=== PATIENT | male | born 1955 | race Caucasian/White ===

== ENCOUNTER 2018-02-20 23:58 | Inpatient (IN) | payer OTHER, MEDICARE ==
[~2018-02-20] VITALS: Ht 177.8 cm; Wt 78.3 kg
[~2018-02-20 23:58] MED LIST: [UNRECOGNIZED DRUG - CODE] PO
[2018-02-21] MEDS ORDERED: SODIUM CHLORIDE 0.9% 1,000ML IVBOLUS ONE (00:30)
[2018-02-21 00:31] LABS: MEAN CORPUSCULAR HEMOGLOBIN 31.3 pg (27.5-34.5); MEAN CORPUSCULAR HGB CONC 33.4 g/dL (33.2-36.2); MEAN CORPUSCULAR VOLUME 93.7 fL (81-97); MEAN PLATELET VOLUME 8.1 fL (7.4-10.4); PLATELET COUNT 249 x10^3/uL (130-400); RED BLOOD COUNT 4.85 x10^6/uL (4.38-5.82); RED CELL DISTRIBUTION WIDTH 14.3 % (9.4-14.8)
[2018-02-21 00:42] LABS: ALBUMIN 3.7 g/dL (3.4-5.0); ANION GAP 17 mmol/L (5-15); CALCIUM 8.4 mg/dL (8.5-10.1); CHLORIDE 111 mmol/L (98-107); CREATININE 1.39 mg/dL (0.7-1.3)
[2018-02-21 00:46] LABS: TROPONIN I < 0.015 ng/mL (0.000-0.045)
[2018-02-21 00:53] LABS: BASOPHILS % (AUTO) 0 % (0-1); EOSINOPHILS # (AUTO) 0.01 x10^3/uL (0-0.4); EOSINOPHILS % (AUTO) 0 % (1-7); LYMPHOCYTES # (AUTO) 0.39 x10^3/uL (1-3.4); LYMPHOCYTES % (AUTO) 3 % (22-44); MD SCAN; MONOCYTES # (AUTO) 0.05 x10^3/uL (0.2-0.8); MONOCYTES % (AUTO) 0 % (2-9); NEUTROPHILS # (AUTO) 14.24 x10^3/uL (1.8-6.8); NEUTROPHILS % (AUTO) 97 % (42-75)
[2018-02-21] MEDS ORDERED: CITA20TA9 PO (01:24)
[2018-02-21] MEDS ORDERED: CLON0.5T PO (01:25)
[2018-02-21] MEDS ORDERED: ATOR40TA78 PO (01:25)
[2018-02-21] MEDS ORDERED: ALBU5SOL6 HHN (01:29)
[2018-02-21] MEDS ORDERED: ONDANSETRON 2MG/ML, 2ML IVPush PRN ×2 (02:00→03:00)
[2018-02-21] MEDS ORDERED: ALBUTEROL SULFATE 2.5 MG/3 ML NPPB ONE (02:00)
[2018-02-21 02:30] VITALS: BP 122/63
[2018-02-21] MEDS ORDERED: SODIUM CHLORIDE 0.9% 1,000 ML IV SCH (02:35)
[2018-02-21] MEDS ORDERED: morphine SULFATE 10 MG/ML, 1ML IVPush PRN (03:00)
[2018-02-21] MEDS ORDERED: POLYETHYLENE GLYCOL 17 GM PACKET PO PRN (03:00)
[2018-02-21] MEDS ORDERED: ONDANSETRON ODT 4 MG PO PRN (03:00)
[2018-02-21] MEDS ORDERED: PROMETHAZINE 25 MG/ML, 1ML IM PRN (03:00)
[2018-02-21] MEDS ORDERED: AZITHROMYCIN 500 MG in SODIUM CHLORIDE 0.9% 250 ML IV SCH (03:00)
[2018-02-21] MEDS ORDERED: hydrALAzine 20 MG/ML, 1ML IVPush PRN (03:00)
[2018-02-21] MEDS ORDERED: LABETALOL 5MG/ML, 20ML IVPush PRN (03:00)
[2018-02-21] MEDS ORDERED: BISACODYL 10 MG SUPP PR PRN (03:00)
[2018-02-21] MEDS ORDERED: DOCUSATE 100 MG CAPSULE PO PRN (03:00)
[2018-02-21] MEDS ORDERED: OMNIPAQUE 350 MG/ML, 100ML BOTTLE ONE (03:30)
[2018-02-21 04:43] LABS: HEMOGLOBIN A1C 5.5 % (4.2-6.3)
[2018-02-21 04:46] LABS: FREE T4 (FREE THYROXINE) 0.77 ng/dL (0.76-1.46); THYROID STIMULATING HORMONE 1.29 mIU/L (0.358-3.740)
[2018-02-21] MEDS: ENOXAPARIN 40 MG/0.4 ML SQ SCH (05:13)
[2018-02-21] MEDS: methylPREDNISolone SOD SUCC 125 MG/2 ML IVPush SCH ×4 (05:13→23:28)
[2018-02-21 05:41] LABS: MICROSCOPIC NOT IND
[2018-02-21 05:48] LABS: CULTURE INDICATED? NO
[2018-02-21] MEDS: FLUTICASONE/VILANTEROL 200-25MCG/INH INH SCH (05:58)
[2018-02-21] MEDS ORDERED: CEFTRIAXONE PMX 2GM/50ML 50 ML IVPB SCH (06:00)
[2018-02-21 06:55] VITALS: BP 124/73
[2018-02-21] MEDS: ALBUTEROL/IPRATROPIUM 2.5MG/0.5MG, 3 ML NPPB SCH ×5 (07:50→22:57)
[2018-02-21] MEDS: CITALOPRAM 20 MG TABLET PO SCH (08:34)
[2018-02-21] MEDS: DOXYCYCLINE 100MG TABLET PO SCH ×2 (08:34→20:53)
[2018-02-21] MEDS: ACETAMINOPHEN 325 MG TABLET PO PRN ×2 (08:39→19:21)
[2018-02-21] MEDS ORDERED: CLONAZEPAM 0.5 MG PO SCH (09:00)
[2018-02-21] MEDS ORDERED: methylPREDNISolone SOD SUCC 125 MG/2 ML IVPush ONE (10:30)
[2018-02-21] MEDS ORDERED: DOXYCYCLINE 100MG TABLET PO SCH (11:00)
[2018-02-21] MEDS ORDERED: FLUTICASONE/VILANTEROL 100-25MCG/INH INH SCH (12:30)
[2018-02-21] MEDS: GUAIFENESIN ER 600 MG TABLET PO SCH ×2 (12:59→23:28)
[2018-02-21 13:17] VITALS: BP 92/45
[2018-02-21 17:07] VITALS: BP 112/52
[2018-02-21 19:39] VITALS: BP 115/67
[2018-02-21] MEDS: MONTELUKAST 10 MG TABLET PO SCH (20:52)
[2018-02-21] MEDS: ATORVASTATIN 40 MG TABLET PO SCH (20:52)
[2018-02-21] MEDS: OXYcodone IR 5MG TABLET PO PRN (21:00)
[2018-02-22 02:30] VITALS: BP 124/52
[2018-02-22] MEDS: SODIUM CHLORIDE 0.9% 1,000 ML IV SCH ×2 (03:12→21:41)
[2018-02-22] MEDS: ENOXAPARIN 40 MG/0.4 ML SQ SCH (05:15)
[2018-02-22] MEDS: methylPREDNISolone SOD SUCC 125 MG/2 ML IVPush SCH ×4 (05:15→22:36)
[2018-02-22] MEDS: ALBUTEROL/IPRATROPIUM 2.5MG/0.5MG, 3 ML NPPB SCH ×5 (06:00→22:11)
[2018-02-22 06:08] LABS: ALBUMIN 3.1 g/dL (3.4-5.0); ANION GAP 9 mmol/L (5-15); CALCIUM 8.3 mg/dL (8.5-10.1); CHLORIDE 114 mmol/L (98-107)
[2018-02-22 06:12] LABS: MEAN CORPUSCULAR HEMOGLOBIN 31.7 pg (27.5-34.5); MEAN CORPUSCULAR HGB CONC 33.9 g/dL (33.2-36.2); MEAN CORPUSCULAR VOLUME 93.6 fL (81-97); MEAN PLATELET VOLUME 8.1 fL (7.4-10.4); PLATELET COUNT 210 x10^3/uL (130-400); RED BLOOD COUNT 4.16 x10^6/uL (4.38-5.82); RED CELL DISTRIBUTION WIDTH 14.7 % (9.4-14.8)
[2018-02-22 06:13] LABS: ALANINE AMINOTRANSFERASE 23 U/L (12-78); ALKALINE PHOSPHATASE 60 U/L (45-117); BILIRUBIN,TOTAL 0.5 mg/dL (0.2-1.0); CHOL/HDL RATIO 2.2; CHOLESTEROL, TOTAL 168 mg/dL (140-239); CREATININE 0.79 mg/dL (0.7-1.3); HDL CHOL % 45 % (26-37); HDL CHOLESTEROL (DIRECT) 75 mg/dL (40-60); LDL CHOLESTEROL,CALCULATED 82 mg/dL (54-169); LDL/HDL RATIO 1.1 (0.5-3.0); TRIGLYCERIDES 54 mg/dL (50-200); VLDL CHOLESTEROL 11 mg/dL (0-25)
[2018-02-22] MEDS: FLUTICASONE/VILANTEROL 200-25MCG/INH INH SCH (06:22)
[2018-02-22 07:43] LABS: MD YES
[2018-02-22] MEDS: CITALOPRAM 20 MG TABLET PO SCH (07:59)
[2018-02-22] MEDS: GUAIFENESIN ER 600 MG TABLET PO SCH ×2 (07:59→21:32)
[2018-02-22] MEDS: CEFTRIAXONE PMX 1GM/50ML 50 ML IV SCH (07:59)
[2018-02-22] MEDS: DOXYCYCLINE 100MG TABLET PO SCH ×2 (07:59→21:30)
[2018-02-22 08:18] LABS: BAND#(MANUAL) 0.58 x10^3/uL; BANDS%(MANUAL) 3 % (0-7); LYMPH#(MANUAL) 0.39 x10^3/uL (1-3.4); LYMPHS% (MANUAL) 2 % (22-44); MONOS#(MANUAL) 0.77 x10^3/uL (0.3-2.7); MONOS% (MANUAL) 4 % (2-9); SEG#(MANUAL) 17.56 x10^3/uL (1.8-6.8); SEGS% (MANUAL) 91 % (42-75)
[2018-02-22 08:19] LABS: <PLATELET ESTIMATE> ADEQUATE; <PLT MORPHOLOGY> NORMAL PLT MORPH; <RBC MORPHOLOGY> NORMAL
[2018-02-22 08:28] VITALS: BP 112/64
[2018-02-22] MEDS: OXYcodone IR 5MG TABLET PO PRN ×2 (10:46→18:13)
[2018-02-22 15:55] VITALS: BP 106/56
[2018-02-22 20:36] VITALS: BP 115/65
[2018-02-22] MEDS: BENZONATATE 100 MG CAPSULE PO SCH (21:31)
[2018-02-22] MEDS: MONTELUKAST 10 MG TABLET PO SCH (21:31)
[2018-02-22] MEDS: ATORVASTATIN 40 MG TABLET PO SCH (21:31)
[2018-02-23 01:16] VITALS: BP 105/55
[2018-02-23] MEDS: methylPREDNISolone SOD SUCC 125 MG/2 ML IVPush SCH ×4 (04:35→22:00)
[2018-02-23] MEDS: ENOXAPARIN 40 MG/0.4 ML SQ SCH (04:36)
[2018-02-23] MEDS: ALBUTEROL/IPRATROPIUM 2.5MG/0.5MG, 3 ML NPPB SCH ×6 (06:00→23:20)
[2018-02-23] MEDS: FLUTICASONE/VILANTEROL 200-25MCG/INH INH SCH (06:00)
[2018-02-23 07:31] VITALS: BP 121/66
[2018-02-23] MEDS: CEFTRIAXONE PMX 1GM/50ML 50 ML IV SCH (09:40)
[2018-02-23] MEDS: OXYcodone IR 5MG TABLET PO PRN (09:40)
[2018-02-23 09:51] LABS: BASOPHILS % (AUTO) 0 % (0-1); EOSINOPHILS # (AUTO) 0.01 x10^3/uL (0-0.4); EOSINOPHILS % (AUTO) 0 % (1-7); LYMPHOCYTES % (AUTO) 3 % (22-44); MD NO; MEAN CORPUSCULAR HEMOGLOBIN 31.1 pg (27.5-34.5); MEAN CORPUSCULAR HGB CONC 33.4 g/dL (33.2-36.2); MONOCYTES # (AUTO) 0.49 x10^3/uL (0.2-0.8); MONOCYTES % (AUTO) 3 % (2-9); NEUTROPHILS # (AUTO) 14.81 x10^3/uL (1.8-6.8); NEUTROPHILS % (AUTO) 94 % (42-75); PLATELET COUNT 235 x10^3/uL (130-400); RED BLOOD COUNT 4.49 x10^6/uL (4.38-5.82); RED CELL DISTRIBUTION WIDTH 14.8 % (9.4-14.8)
[2018-02-23 09:59] LABS: ALANINE AMINOTRANSFERASE 33 U/L (12-78); ALBUMIN 3.3 g/dL (3.4-5.0); ANION GAP 11 mmol/L (5-15); CALCIUM 8.8 mg/dL (8.5-10.1); CHLORIDE 112 mmol/L (98-107)
[2018-02-23] MEDS ORDERED: methylPREDNISolone SOD SUCC 125 MG/2 ML IVPush ONE (10:00)
[2018-02-23 10:02] LABS: ALKALINE PHOSPHATASE 63 U/L (45-117); BILIRUBIN,TOTAL 0.5 mg/dL (0.2-1.0); CREATININE 0.99 mg/dL (0.7-1.3); TOTAL PROTEIN 6.4 g/dL (6.4-8.2)
[2018-02-23] MEDS: CITALOPRAM 20 MG TABLET PO SCH (10:02)
[2018-02-23] MEDS: GUAIFENESIN ER 600 MG TABLET PO SCH ×2 (10:03→22:00)
[2018-02-23] MEDS: BENZONATATE 100 MG CAPSULE PO SCH (10:04)
[2018-02-23] MEDS: DOXYCYCLINE 100MG TABLET PO SCH ×2 (10:05→22:01)
[2018-02-23] MEDS ORDERED: MAGNESIUM SULFATE PMX 2GM/50ML 50 ML IV ONE ×2 (10:30→11:30)
[2018-02-23 10:41] LABS: O2 FLOW 2 L/min
[2018-02-23] MEDS ORDERED: ALBUTEROL SULFATE 2.5 MG/3 ML ONE ×2 (11:15→11:35)
[2018-02-23] MEDS ORDERED: LORazepam 2 MG/ML, 1ML IVPush ONE (11:30)
[2018-02-23] MEDS: ATORVASTATIN 40 MG TABLET PO SCH (22:00)
[2018-02-23] MEDS: MONTELUKAST 10 MG TABLET PO SCH (22:01)
[2018-02-24] MEDS: ALBUTEROL/IPRATROPIUM 2.5MG/0.5MG, 3 ML NPPB SCH ×6 (03:00→23:00)
[2018-02-24 04:00] VITALS: BP 102/54
[2018-02-24] MEDS: methylPREDNISolone SOD SUCC 125 MG/2 ML IVPush SCH ×4 (04:22→22:33)
[2018-02-24] MEDS: ENOXAPARIN 40 MG/0.4 ML SQ SCH (04:23)
[2018-02-24] MEDS: CEFTRIAXONE PMX 1GM/50ML 50 ML IV SCH (07:53)
[2018-02-24] MEDS: FLUTICASONE/VILANTEROL 200-25MCG/INH INH SCH (08:00)
[2018-02-24] MEDS: CITALOPRAM 20 MG TABLET PO SCH (09:31)
[2018-02-24] MEDS: GUAIFENESIN ER 600 MG TABLET PO SCH ×2 (09:32→20:05)
[2018-02-24] MEDS: DOXYCYCLINE 100MG TABLET PO SCH ×2 (09:32→20:07)
[2018-02-24 09:42] LABS: ALANINE AMINOTRANSFERASE 40 U/L (12-78); ANION GAP 8 mmol/L (5-15); CALCIUM 8.2 mg/dL (8.5-10.1); CHLORIDE 107 mmol/L (98-107)
[2018-02-24 09:45] LABS: ALKALINE PHOSPHATASE 57 U/L (45-117); BILIRUBIN,TOTAL 0.4 mg/dL (0.2-1.0); TOTAL PROTEIN 5.9 g/dL (6.4-8.2)
[2018-02-24 09:47] LABS: BASOPHILS % (AUTO) 0 % (0-1); EOSINOPHILS % (AUTO) 0 % (1-7); HEMOGRAM NOTE RECHECKED; LYMPHOCYTES # (AUTO) 0.59 x10^3/uL (1-3.4); LYMPHOCYTES % (AUTO) 7 % (22-44); MD NO; MEAN CORPUSCULAR HEMOGLOBIN 31.8 pg (27.5-34.5); MEAN CORPUSCULAR HGB CONC 34.2 g/dL (33.2-36.2); MEAN CORPUSCULAR VOLUME 93.1 fL (81-97); MEAN PLATELET VOLUME 8.4 fL (7.4-10.4); MONOCYTES # (AUTO) 0.32 x10^3/uL (0.2-0.8); MONOCYTES % (AUTO) 4 % (2-9); NEUTROPHILS # (AUTO) 7.64 x10^3/uL (1.8-6.8); NEUTROPHILS % (AUTO) 89 % (42-75); PLATELET COUNT 208 x10^3/uL (130-400); RED BLOOD COUNT 4.28 x10^6/uL (4.38-5.82); RED CELL DISTRIBUTION WIDTH 14.7 % (9.4-14.8)
[2018-02-24 20:00] VITALS: BP 128/72
[2018-02-24] MEDS: ATORVASTATIN 40 MG TABLET PO SCH (20:06)
[2018-02-24] MEDS: MONTELUKAST 10 MG TABLET PO SCH (20:07)
[2018-02-25] MEDS: ALBUTEROL/IPRATROPIUM 2.5MG/0.5MG, 3 ML NPPB SCH ×2 (01:59→06:39)
[2018-02-25 02:30] VITALS: BP 122/67
[2018-02-25] MEDS: methylPREDNISolone SOD SUCC 125 MG/2 ML IVPush SCH ×2 (04:46→11:42)
[2018-02-25] MEDS: ENOXAPARIN 40 MG/0.4 ML SQ SCH (04:46)
[2018-02-25 05:19] LABS: BASOPHILS % (AUTO) 0 % (0-1); EOSINOPHILS % (AUTO) 0 % (1-7); LYMPHOCYTES # (AUTO) 0.44 x10^3/uL (1-3.4); LYMPHOCYTES % (AUTO) 6 % (22-44); MD NO; MEAN CORPUSCULAR HEMOGLOBIN 31.3 pg (27.5-34.5); MEAN CORPUSCULAR HGB CONC 33.4 g/dL (33.2-36.2); MEAN CORPUSCULAR VOLUME 93.9 fL (81-97); MEAN PLATELET VOLUME 8.1 fL (7.4-10.4); MONOCYTES # (AUTO) 0.45 x10^3/uL (0.2-0.8); MONOCYTES % (AUTO) 6 % (2-9); NEUTROPHILS # (AUTO) 7.22 x10^3/uL (1.8-6.8); NEUTROPHILS % (AUTO) 89 % (42-75); PLATELET COUNT 201 x10^3/uL (130-400); RED BLOOD COUNT 4.38 x10^6/uL (4.38-5.82); RED CELL DISTRIBUTION WIDTH 14.4 % (9.4-14.8)
[2018-02-25 05:38] LABS: CHLORIDE 111 mmol/L (98-107)
[2018-02-25 05:49] LABS: ALANINE AMINOTRANSFERASE 41 U/L (12-78); ALBUMIN 2.9 g/dL (3.4-5.0); ALKALINE PHOSPHATASE 53 U/L (45-117); ANION GAP 7 mmol/L (5-15); BILIRUBIN,TOTAL 0.4 mg/dL (0.2-1.0); CALCIUM 7.7 mg/dL (8.5-10.1); CREATININE 0.76 mg/dL (0.7-1.3); TOTAL PROTEIN 5.6 g/dL (6.4-8.2)
[2018-02-25] MEDS: ACETAMINOPHEN 325 MG TABLET PO PRN (06:01)
[2018-02-25 06:50] VITALS: BP 142/56
[2018-02-25] MEDS: GUAIFENESIN ER 600 MG TABLET PO SCH (09:11)
[2018-02-25] MEDS: DOXYCYCLINE 100MG TABLET PO SCH (09:11)
[2018-02-25] MEDS: CITALOPRAM 20 MG TABLET PO SCH (09:11)
[2018-02-25] MEDS: FLUTICASONE/VILANTEROL 200-25MCG/INH INH SCH (09:17)
[2018-02-25] MEDS: CEFTRIAXONE PMX 1GM/50ML 50 ML IV SCH (09:18)
[2018-02-25] MEDS ORDERED: ALBUTEROL/IPRATROPIUM 2.5MG/0.5MG, 3 ML NPPB SCH (11:00)
[2018-02-25] MEDS ORDERED: DOXY100T PO (11:53)
[2018-02-25] MEDS ORDERED: IPRA3AMP30 NPPB (11:53)
[2018-02-25] MEDS ORDERED: GUAI600T31 PO (11:53)
[2018-02-25] MEDS ORDERED: FLUT1BLS INH (11:58)
[2018-02-25] MEDS ORDERED: CEFD300C37 PO (11:58)
[2018-02-25] MEDS ORDERED: MONT10TA9 PO (11:58)
[2018-02-25 12:18] VITALS: BP 147/73
== END 2018-02-25 14:25 | disposition home or self-care (01) | DRG 871 ==
LOC: ED 23:59 → EDIP 02-21 01:38 → 4EST 02-21 02:19 → CCU 02-23 11:03 → 4WST 02-24 17:17
PROVIDERS: ADMIT Internal Medicine; ATTEND Internal Medicine
PROC: 5A09357 Assistance with Respiratory Ventilation, Less than 24 Consecutive Hours, Continuous Positive Airway Pressure (ICD-10-PCS; principal; 2018-02-23)
DX: A41.9 Sepsis, unspecified organism (principal); J96.01 Acute respiratory failure with hypoxia; N17.0 Acute kidney failure with tubular necrosis; E87.1 Hypo-osmolality and hyponatremia; J44.1 Chronic obstructive pulmonary disease with (acute) exacerbation; J45.42 Moderate persistent asthma with status asthmaticus; J98.11 Atelectasis; E78.5 Hyperlipidemia, unspecified; F17.200 Nicotine dependence, unspecified, uncomplicated; F32.9 Major depressive disorder, single episode, unspecified; F41.9 Anxiety disorder, unspecified; Z82.5 Family history of asthma and other chronic lower respiratory diseases; Z90.49 Acquired absence of other specified parts of digestive tract; Z79.899 Other long term (current) drug therapy
CPT/HCPCS: 36415; 36600; 84145; 99291; J7620; 71045; 71275; 80048; 80053; 80061; 81003; 82040; 82803; 83036; 83605; 83615; 83735; 84100; 84439; 84443; 84484; 85025; 87040; 87070; 87081; 87205; 93005; 93306; 94640; 94644; 94660; 96360; G0378; J0456; J0696; J1650; Q9967; J2060; J2930; J3475; J7030; J7050